=== PATIENT | male | born 1965 | race Caucasian/White ===

== ENCOUNTER 2017-11-01 06:20 | Day surgery (SDC) | payer OTHER ==
[2017-10-31 09:19] VITALS: BMI 31.0
[2017-11-01 06:49] VITALS: TEMP 98.3
[2017-11-01] MEDS ORDERED: LIDOCAINE 1%/EPI 1:100000 (20 ML MULTI DOSE VIAL) ONE (07:29)
[2017-11-01] MEDS ORDERED: MIDAZOLAM HCL 2 MG/2 ML SINGLE DOSE VIAL ONE ×3 (08:14→08:49)
--- NOTE | 2017-11-01 08:16 | HP ---
History & Physical Update - History History: No Change - Physical Physical: No Change - Assessment Assessment: No Change - Plan Plan: No Change (H & P on 10/04/17)
[2017-11-01] MEDS ORDERED: LIDOCAINE 1%/EPI 1:100000 (50 ML MULTI DOSE VIAL) INF ONE (08:30)
--- NOTE | 2017-11-01 09:19 | OP ---
Operative Note - Note: Operative Date: 11/01/17 Pre-Operative Diagnosis: Left midback and right inguinal cystic masses Operation: Excision of back and inguinal masses Findings: cystic masses of left midback and right inguinal areas Post-Operative Diagnosis: Same as Pre-op Surgeon: Marcio Win Anesthesia: Local, MAC Specimens Removed: cystic masses Estimated Blood Loss (mls): 2 Operative Report Dictated: Yes
--- NOTE | 2017-11-01 10:45 | OP ---
DATE OF OPERATION: 11/01/2017 PROCEDURE: Excision of left mid back and right inguinal masses or cysts. PREOPERATIVE DIAGNOSIS: Left mid back and right inguinal cystic masses. POSTOPERATIVE DIAGNOSIS: Left mid back and right inguinal cystic masses. SURGEON: Marcio Win MD ANESTHESIA: Local with sedation. FINDINGS ON PROCEDURE: This is a 52-year-old male who presents with recurrent cystic masses, left mid back. Excision removal was done 7 years ago. Patient also cystic mass of the right inguinal region, which was about 2 cm in size. The back mass was about 4 cm in its widest diameter. So, patient was advised elective excision of the masses, and consent was obtained after discussing the risks, benefits, and alternatives of the procedure. DESCRIPTION OF PROCEDURE: Patient was brought to the operating room and placed in right lateral decubitus position. Intravenous sedation was given by anesthesia team. The operative sites were prepped and draped in the usual sterile fashion. Using lidocaine 1% with epinephrine, local anesthesia was administered to the proposed incision site. A 3 x 1 cm elliptical incision incorporating the central sinus was made using scalpel blade No. 15. Resection was carried down to subcutaneous tissue. Further dissection using Metzenbaum scissors combined with Bovie cautery was done until the cystic mass together with ellipse of skin was completely excised. The wound was undermined about 0.5 cm on each side, and the wound was closed with interrupted Polysorb 3-0 suture for the dermis and continuous Biosyn 4-0 suture for the subcuticular layer. The wound closure was reinforced with Steri-Strips and covered with sterile dressing. The patient was placed in supine position, and the right inguinal area was prepped and draped in the usual sterile fashion. The cystic mass was excised by initially administered lidocaine 1% with epinephrine. A 2 x 0.5 cm elliptical incision was made with scalpel blade No. 15, and further dissection was done using iris scissors until the cystic mass together with ellipse of skin was completely excised. The wound was undermined using Bovie cautery, and the wound was closed with interrupted Polysorb 3-0 suture for the dermis and continuous Biosyn 4-0 suture for the subcuticular layer. The wound closure was reinforced with Steri-Strips and covered with sterile dressing. The patient was transferred to ambulatory surgery in satisfactory condition. ESTIMATED BLOOD LOSS: 2 mL. WOUND CLASS: Clean. Anyi [id number]
[2017-11-01 11:20] VITALS: BP 141/72; PULSE 60
--- NOTE | 2017-11-04 18:50 | PATH ---
Surgical Pathology Report Patient Name: EUGENIA POWELL [facility]. Rec. #: [id number] /Age/Gender: 1965 (Age: 52) / M Account: [id number] Location: [facility] Taken: 11/01/2017 Received: 11/01/2017 Reported: 11/04/2017 Physicians: Marcio Win M.D. Specimen(s) Received A: LEFT MID BACK CYST B: RIGHT INGUINAL CYST Clinical History Left upper back mass and right inguinal soft tissue mass Final Diagnosis A. LEFT MID BACK, CYST, EXCISION: SEGMENT OF SKIN WITH EPIDERMAL INCLUSION CYST. B. RIGHT INGUINAL, CYST, EXCISION: SEGMENT OF SKIN WITH EPIDERMAL INCLUSION CYST. Electronically Signed Chris Kraus M.D. Gross Description A. Received in formalin labeled "left upper back cyst," is a 2.8 x 2.4 x 1.8 cm valladares, intact cyst which is surfaced by a 2.5 x 0.6 cm valladares, elliptical, unremarkable portion of skin. The cyst lumen contains valladares sebaceous material. A practice representative section is submitted in one cassette. B. Received in formalin labeled "right inguinal cyst," no is a 1.0 x 0.7 x 0.7 cm valladares, intact cyst which is surfaced by a 1.7 x 0.4 cm valladares, elliptical, unremarkable portion of skin. The cyst lumen contains valladares sebaceous material. A practice representative section is submitted in one cassette. 11/01/201711/01/2017
== END 2017-11-01 11:28 | disposition home or self-care (01) ==
LOC: JASU-SURG 06:20
PROVIDERS: ATTEND Surgery
PROC: 0HBAXZZ Excision of Inguinal Skin, External Approach (ICD-10-PCS; 2017-11-01)
PROC: 0HB6XZZ Excision of Back Skin, External Approach (ICD-10-PCS; principal; 2017-11-01 08:00)
DX: L72.0 Epidermal cyst (principal)
CPT/HCPCS: 88304-TC